=== PATIENT | male | born 1950 | race Caucasian/White ===

== ENCOUNTER 2022-09-27 15:22 | Outpatient (CLI) | payer MEDICARE | END 2022-09-27 23:59 | disposition home or self-care (01) | LOC: RAD 15:22 | PROVIDERS: ATTEND Registered Nurse | DX: K21.9 Gastro-esophageal reflux disease without esophagitis (principal); R49.0 Dysphonia; R13.14 Dysphagia, pharyngoesophageal phase | CPT/HCPCS: 74230 ==